=== PATIENT | female | born 1945 | race African-American/Black ===

== ENCOUNTER 2021-03-21 10:54 | Emergency (ER) | payer OTHER ==
[~2021-03-21] VITALS: Ht 160 cm; Wt 46.7 kg
[2021-03-21 11:40] LABS: URINE BILIRUBIN NEGATIVE (Negative); URINE BLOOD NEGATIVE (Negative); URINE CLARITY CLEAR; URINE COLOR YELLOW; URINE GLUCOSE-RANDOM* NEGATIVE (Negative); URINE KETONES NEGATIVE (Negative); URINE LEUKOCYTES-REFLEX NEGATIVE (Negative); URINE NITRITE-REFLEX NEGATIVE (Negative); URINE PROTEIN (DIPSTICK) NEGATIVE (Negative); URINE UROBILINOGEN 0.2 E.U./dl (0.2-1.0)
[2021-03-21 11:42] LABS: ABSOLUTE NEUTROPHILS 4.7 thou/uL (1.4-8.2); EOSINOPHILS 1.6 % (0.0-3.0); HEMATOCRIT 30.1 % (37.0-47.0); HEMOGLOBIN 9.6 gm/dL (12.0-15.0); LYMPHOCYTES 11.6 % (24.0-44.0); MCH 30.5 pg (26.0-34.0); MCHC 31.9 g/dL (28.0-37.0); MCV 95.6 fL (80.0-100.0); MONOCYTES 8.5 % (1.0-8.0); PLATELET COUNT 455 thou/uL (150-400); POLYS 77.3 % (36.0-66.0); RBC 3.15 mil/uL (4.20-5.00); RDW 15.5 % (10.5-14.5); WBC 6.1 thou/uL (4.0-11.0)
[2021-03-21 11:59] LABS: CALCIUM 8.9 mg/dL (8.5-10.1); CREATININE 0.9 mg/dL (0.6-1.0); POTASSIUM 4.1 mmol/L (3.5-5.1)
[2021-03-21 12:05] LABS: ALBUMIN 3.4 g/dL (3.4-5.0); TOTAL BILIRUBIN 0.3 mg/dL (0.2-1.0); TOTAL PROTEIN 7.4 g/dL (6.4-8.2)
[2021-03-21] MEDS ORDERED: TYLENOL325 MG PO (12:40)
[2021-03-21] MEDS ORDERED: NORVASC5 MG PO (12:41)
[2021-03-21] MEDS ORDERED: ATORVASTATIN CA10 MG PO (12:41)
[2021-03-21] MEDS ORDERED: CARBIDOPA-LEVO1 EAC9 PO (12:42)
[2021-03-21] MEDS ORDERED: LEXAPRO 10 MG T10 M2 PO (12:43)
[2021-03-21] MEDS ORDERED: VITAMIN D325 MC3 PO (12:43)
[2021-03-21] MEDS ORDERED: KEPPRA 500 MG500 M1 PO (12:45)
[2021-03-21] MEDS ORDERED: IRON325 PO (12:45)
[2021-03-21] MEDS ORDERED: LISINOPRIL20 MG PO (12:46)
[2021-03-21] MEDS ORDERED: IMODIUM A-D2 M1 PO (12:46)
[2021-03-21] MEDS ORDERED: SSD CREAM 1% 5050 GM TOP (12:47)
[2021-03-21] MEDS ORDERED: SEROQUEL 25 MG25 M1 PO (12:47)
[2021-03-21] MEDS ORDERED: PROTONIX 20 MG20 MG PO (12:47)
[2021-03-21 16:20] VITALS: BP 124/87
[2021-03-21] MEDS ORDERED: LIPITOR10 MG PO (18:39)
== END 2021-03-21 16:22 ==
LOC: ER 10:54
PROVIDERS: Physician Assistant
DX: F98.8 Other specified behavioral and emotional disorders with onset usually occurring in childhood and adolescence (principal); Z20.822 Contact with and (suspected) exposure to COVID-19; R45.6 Violent behavior; L89.152 Pressure ulcer of sacral region, stage 2; Z79.899 Other long term (current) drug therapy

== ENCOUNTER 2021-03-21 12:46 | Inpatient (IN) | payer OTHER ==
[~2021-03-21] VITALS: Ht 160 cm; Wt 47.7 kg
[~2021-03-21 12:46] MED LIST: ATORVASTATIN CA10 MG PO; CARBIDOPA-LEVO1 EAC9 PO; IMODIUM A-D2 M1 PO; IRON325 PO; KEPPRA 500 MG500 M1 PO; LEXAPRO 10 MG T10 M2 PO; LISINOPRIL20 MG PO; NORVASC5 MG PO; TYLENOL325 MG PO; VITAMIN D325 MC3 PO
[2021-03-21] MEDS ORDERED: PROTONIX 20 MG20 MG PO (12:47)
[2021-03-21] MEDS ORDERED: SEROQUEL 25 MG25 M1 PO (12:47)
[2021-03-21] MEDS ORDERED: SSD CREAM 1% 5050 GM TOP (12:47)
[2021-03-21 16:26] VITALS: BP 148/90
[2021-03-21] MEDS ORDERED: LIPITOR10 MG PO (18:39)
[2021-03-21 19:39] VITALS: BP 110/73
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
--- NOTE | 2021-03-22 02:07 | NUR ---
Assumed care from Day shift nurse at 1900, pt is Alert to self, pleasant, converses with nurse and DIRECTOR OF PUBLIC WORKS, Pt took her medications whole without difficulty, Lungs clear, HRR, Abd soft non tender BS+ x 4 Q, Pt had a BM this shift, Pt denies SI/HI, no symptoms of visual or auditory halluncinations. Dressing intact to coccyx area, Silvadene not available yet. Will continue to monitor this shift.
[2021-03-22 02:12] VITALS: BP 110/73
[2021-03-22 05:35] LABS: CHOLESTEROL 144 mg/dL (<200); HDL CHOLESTEROL 97 mg/dL (>40); LDL CHOLESTEROL 38 mg/dL (<100); SERUM ASSESSMENT Clear; TC:HDL 1.5 Ratio (Not establshd); TRIGLYCERIDE 46 mg/dL (<150); VLDL 9 mg/dL (<40)
[2021-03-22 07:28] VITALS: BP 142/85
--- NOTE | 2021-03-22 12:10 | NUR ---
ASSISTED TO DAYROOM WITH ASSIST OF ONE STAFF TO TRANSFER TO -COMPLIENT WITH ALLOWING CLOTHING CHANGE AND AM ADLS BUT OFFERS LITTLE ASSISTANCE. ONCE IN DAYROOM NOTED TO BE RESTLESS ATTEMPTING TO GET UP FROM CHAIR WITH BRAKES NOT LOCKED DESPITE NOT HAVING AMBULATED FOR SEVERAL YEARS PER HX-REFUSED AM MEDS TAKING CUP FROM NURSE AND POURING THEM ON FLOOR. REFUSES TO TALK WITH STAFF JUST LOOKS INTENTLY AT NURSE AND PICKS UP WATER CUP AND THREW IT TOWARD NURSE. REFUSES PHYSICL ASSESSMENT AND WOUND CARE-DOES APPEAR TO BE TALKING TO UNSEEN OTHERS IN DAYROOM
--- NOTE | 2021-03-22 18:04 | NUR ---
INCREASED RESTLESSNESS/IMPULSIVE BEHAVIOR THIS PM-STANDING UP AND ATTEMPTING TO WALK ON OWNEVERY FEW MINUTES REQUIRING STAFF TO SIT WITH HER CONTINOUSLY D/T AGITATION,REFUSAL TO FOLLOW VERBAL DIRECTION OF STAFF-RECENT FALL 02/16 WITH SUBSEQUENT SURGERY FOR BRAIN TRAUMA. ARGUMENTATIVE WITH STAFF WHENATTEMPTS MADE TO [id number]-BUR AMBULATE WITH USE OF ROLLER WALKER AND PT FOR SHORT DISTANCE-INCONTINENT OF BM-REQUIRES THREE STAFF TO COMPLETE INCONTINENT CARE AND WOUND CARE-DID LAY DOWN AFTER LUNCH WITH MUCH ENCOURAGEMENT-TO DECREASE PRESSURE ON COCYX BUT WAS ATTEMPTING TO CRAWL OUT OF BED OVER SIDERAILS WITHIN 10 MINUTES-CONTINUES TO REFUSE ALL PO MEDS.
[2021-03-22 19:54] VITALS: BP 96/63
[2021-03-23 00:43] VITALS: BP 96/63
--- NOTE | 2021-03-23 00:56 | NUR ---
03/22/21 Assumed care from day shift at 1900, pt sitting in wheelchair in day room at the table, Pt is alert to self, she converses with this nurse we discussed her taking her medication and she agrees. medication taken whole without difficulty she drank two eight oz bottles of water. Pt had a BM this shift and her dressing was changed at about 2200. She was cooperative with that and tolerated the procedure fine. Pt talks with this nurse about classical music. Pt denies SI/HI/AH/VH, will continue to monitor throughout shift.
[2021-03-23 07:07] LABS: GLYCOHEMOGLOBIN (HGB A1C) 4.6 % (4.8-5.6)
[2021-03-23 08:42] VITALS: BP 142/94
--- NOTE | 2021-03-23 11:23 | NUR ---
WAS COOPERATIVE WITH TAKING AM MEDICATIONS WITH PROMPTING-INITIALLY REFUSED STATING THAT SHE HAD ALREADY HAD THEM.DID TAKE RELUCTANTLY AFTER 30-40 MINUTES OF SUPPORT/EDUCATION BY RN. NO SEIZURE ACTIVITY NOTED OR REPORTED. DOES TRANSFER TO/FROM BED/TOILET WITH ASSIST 2 STAFF. ATTEMPTED TO AMBULATE FROM DOOR OF ROOM TO TOILET AND WAS RESISITVE/ANXIOUS STATING "I CAN'T WALK RIGHT NOW IM TOO WEAK" ORIENTED TO NAME ONLY-DID TELL MAIL CLERK SHE HEARD BARKING AND WAS WORRIED THAT A DOG WAS GOING TO GET INTO HER ROOM. ATE 100 PERCENT OF BREAKFAST-INITIALY THIS AM IN WC WITH CUSHION-TRANSITIONED TO GERICHAIR AT 1000 PER WOUND CARE TX PLAN TO DECREASE PRESSURE TO COCYX WOUND PT REFUSES TO LAY DOWN AND REQUIRES CONSTANT REDIRECT TO PREVENT ANOTHER FALL.
--- NOTE | 2021-03-23 13:45 | NUR ---
OBSERVED INCREASE IN RESTLESSNESS,AGITATION AFTER LUNCH-TOILETED AND ATTEMPTED TO LAY DOWN FOR AN HOUR TO RELIEVE PRESSURE TO COCYX WOUND PER TX PLAN HOWEVER REFUSES-INSISTING THAT SHE HAS NO PROBLEMS WALKING ON OWN AND DOES NOT HAVE A WOUND-ALSO INSITING SHE HAS NEVER FALLEN OR HAD SURGERY ON HEAD A RESULT OF THAT FALL. "YOU ARE AN IDIOT AND I AM GOING TO BRITNEY ALL OF YOU-YOU CAN'T TELL ME WHEN TO LIE DOWN AND WHEN TO WALK"ATE WELL AT BREAKFAST BUT APPROX 50 PERCENT AT LUNCH-MAJORITY OF MEAL WAS BENT OVER IN WC STATING SHE WAS TRYING TO GET THE BUGS OFF THE FLOOR" NO BUGS OBSERVED BY STAFF .
--- NOTE | 2021-03-23 15:07 | NUR ---
SW met with patient and Dr. Graff to complete assessment. SW team will remain available.
[2021-03-23 19:09] VITALS: BP 123/86
[2021-03-23 20:00] VITALS: BP 123/86
--- NOTE | 2021-03-24 04:20 | NUR ---
PATIENT RESTING IN BED. HAVE HAD HER UP TO [facility] 3 TIMES. SHE IS INCONTINENT IN BED ALSO. SHE HAS HAD 2 FORMED STOOLS. SHE HAS A DIME SIZE OPEN AREA AT COCCYX THAT HAS BEEN KEPT CLEAN BUT DRESSINGS NOT STAYING ON WELL D/T INCONTINENCE AND BMS. WOUND HAS BEEN CLEANED EACH INCONTINENT TIME WHEN DRESSING OFF WITH WOUND CLEANSER AND SILVADINE APPLIED AND XEROFORM AND COVERED WITH OPTIFORM DRESSING. PATIENT TURNED TO SIDE TO SIDE IN BED EVERY 2 HOURS UNLESS PATIENT HAS TURNED SELF. PATIENT IS HIGH FALL RISK. SHE HAS ALL 4 SIDERAILS UP D/T BEING ON SEIZURE MEDS. NO SEIZURES RECENTLY. PATIENT'S DENIES PAIN. NO SI/HI NOTED. SHE IS DELUSIONAL AND THINKS OF STAFF OTHER PEOPLE SHE KNOWS. SHE ALSO SEE'S A BLACK DOG THAT COMES TO VISIT IN THE HALLS AT TIMES. SHE HAS BEEN CALM AND COOPERATIVE. SHE TOOK HER HS MEDS WHOLE AND WITH WATER. ROUTINE ROUNDS TO ASSESS SAFETY AND STATUS OF PATIENT. CONTINUING TO MONITOR.
[2021-03-24 08:37] VITALS: BP 123/84
--- NOTE | 2021-03-24 18:00 | NUR ---
0700 ASSUMED CARE OF PATIENT. PATIENT SITTING IN GERICHAIR SLEEPING. PATIENT FEEDS SELF. MEDICATION TAKEN WHOLE WITH SOME ASSISTANCE. HANDS SHAKE, PATIENT HAS DIFFICULTY GETTING MEDICATION TO MOUTH. LS CLEAR, BS ACITVE, NO C/O PAIN. DENIES SI/HI. PATIENT TO ROOM, TRANSFERED DRESSING TO COCCYX CHANGED, CLEANSED WITH WOUND CARE CLEANSER, SILVEDENE APPLIED AND COVERED WITH XEROFORM & BOARDERED DRESSING. WOUND CARE IN TO SEE PATIENT AND OBSERVED WOUND. ALERT + ORIENTED X1. DENIES NEEDS AT THIS TIME
[2021-03-24 20:00] VITALS: BP 143/91
[2021-03-24 20:27] VITALS: BP 143/91
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
--- NOTE | 2021-03-25 03:45 | NUR ---
PATIENT SITTING UP IN RECLINER AT BEGINNING OF SHIFT. SHE DENIED PAIN AND STATES SHE HAD A GOOD DAY. SHE DID NOT APPEAR COMFORTABLE AND WHEN WENT TO REPOSITION SHE VOICED THAT SHE WAS FINE AND TO LEAVE HER. PATIENT'S PANTS WERE SOILED. PATIENT WAS ASSESSED AND MEDS GIVEN WHOLE WITH WATER. PATIENT TAKEN BACK TO ROOM RIGHT AFTER MEDS AND INCONTINENCE CARES DONE. WOUND AT COCCYX CLEANED WITH WOUND CLEANSER AND BARRIER CREAM APPLIED AND AREA LEFT OPEN TO AIR. PATIENT PLACED ON RIGHT SIDE. PATIENT HAS HAD 2 WATERY STOOLS THAT WERE BROWN/GREEN IN COLOR. SHE IS ON IRON. PATIENT HAS ROUTINE INCONTINENCE CARES AND TURNING PRN. SHE HAS BEEN RESTING WELL. SUTURES AREA LEFT SIDE OF HEAD WITHOUT SIGNS OF DRAINAGE OR INFECTION. PATIENT HAS BEEN A/0X1. DENIES SI/HI. NO HALLUCINATIONS THIS EVENING. BED IN LOW POSITION AND BED ALARM IS ON. ROUTINE ROUNDS TO ASSESS SAFETY AND STATUS OF PATIENT.
[2021-03-25 09:08] VITALS: BP 135/87
--- NOTE | 2021-03-25 16:53 | NUR ---
0700 ASSUMED CARE OF PATIENT, PATIENT IN BED AT THAT TIME. PATIENT IN GERICHAIR IN DAYROOM FOR BREAKFAST. REFUSES MEDICATION THIS AM WITH INCREASED AGITATION ATTEMPTING TO GIVE MEDS. PATIENT THEN CLOSES EYES AND DOES NOT TALK. PATIENT BACK TO BED, MOISTURE BARRIER APPLIED TO COCCYX WOUND AND LORIN. REPOSITIONED TO LEFT SIDE. PATIENT RESTING AT THAT TIME. PATIENT TO DAYROOM IN WITH WAFFLE CUSHION IN PLACE. LS CLEAR, BS ACTIVE ABD FLAT & SOFT. NO C/O PAIN. DENIES SI/HI.
[2021-03-25 19:30] VITALS: BP 101/67
--- NOTE | 2021-03-26 04:57 | NUR ---
03-25-21 CARE TRANSFERRED 1899. LATER PT PRESENTS DROWSY, BUT EASILY AWAKEN TO VOICE, PT AAOX1, VSS, RR EVEN AND NONLABORED ON RA. PT DENIES PAIN AND SI/HI. PT BEEN CALM AND COOPERATIVE THROUGHOUT NURSING ASSESSMENT. PT HAS BEEN REPOSITION Q2 AND LEFT OPEN TO AIR ON CLEAN CHUX. ZERO S/S OF ACUTE DISTRESS NOTED, PT WILL CONTINUE TO BE MONITOR PER [facility] PROTOCOL.
[2021-03-26 10:21] VITALS: BP 135/81
--- NOTE | 2021-03-26 18:54 | NUR ---
0700 ASSUMED CARE OF PATIENT, PATIENT IN BED AT THAT TIME. PATIENT IN WC FOR BREAKFAST AWAKE AND ALERT. ORIENTED TO SELF. MEDICATION TAKEN WHOLE WITHOUT DIFFICULTY, DENIES PAIN, LS CLEAR, BS ACTIVE, VS STABLE. SHARATH CARE COMPLETE, PATIENT HAD A MOD LOOSE STOOL. PATIENT REPOSITIONED TO LEFT SIDE. PICTURE OBTAINED OF WOUND TO COCCYX. MOISTURE BARRIER APPLIED AND LEFT CLAMPER. PATIENT DENIES SI/HI. PATIENT OUT TO DAYROOM FOR EVERYMEAL WITH CUSHION IN WC THEN BACK TO BED AFTER EACH MEAL. CALM AND COOPERATIVE. DELUSIONS NOTED PATIENT TALKS ABOUT TAKING THE CAT OUT AND HOW WE SHOULD BE CAREFUL WITH THE CAT. SOFT STOOL X3 TODAY.
[2021-03-26 19:57] VITALS: BP 88/56
[2021-03-26 20:00] VITALS: BP 113/66
--- NOTE | 2021-03-27 01:51 | NUR ---
PT CARE WAS RESUMED AT 1900. PT WAS IN BED. SHE DENIED ANY PAINS AND DISCOMFORT. SHE IS ABLE TO VERBALIZE HER NEEDS. BP WAS LOW NURSE OFFERED FLUIDS AND SHE DRANK VERY GOOD. SHE IS EDUCATED ON THE IMPORANCE OF FLUID AND SHE STATES A GGOD UNDERSTANDING. BED IS LOW,LOCKED AND ALRM ON. SHE DENIES SI/AVH/HI. Q2 HOURLY REPOSITION. PERICARE IS PROVIDED. NON SKID SOCK IS ON. CONT CARE AND MONITOR.SHE TOOK HER MEDS WHOLE WITHOUT ANY ISSUE. BS ACTIVE X 4 QUAD. CONTINUE CARE
[2021-03-27 08:35] VITALS: BP 113/78
--- NOTE | 2021-03-27 12:19 | NUR ---
RT Progress Note- Margarita's presence in the milieu and recreation therapy groups has been limited d/t a wound and her lying in bed to offload pressure. She has however been in attendance to most morning groups. Margarita is willing to participate in groups and has a positive attitude. It is noted that she can be slow to time and requires patience to participate in discussion. Margarita particularly has expressed that she enjoys music. SHOP MECHANIC will continue to encourage progress and participation as available.
--- NOTE | 2021-03-27 13:22 | NUR ---
Assumed pt care at 0700. pt was in room resting. pt was oriented to self. Assessments completed VSS. Pt took meds whole, no difficulty noted. ACTIVE BOWEL SOUND. pt AMBULATES WITH A W/C. Pt took a shower this shift. ZYguard applied to pt coccyx wound. Denies si/hi and denies pain at this time. pt is calm and co-operative with care. Pt family visited. will continue to monitor pt.
--- NOTE | 2021-03-27 17:48 | NUR ---
@10 am Manolo contacted [facility] and spoke with RODNEY. RODNEY informed they sent the referral to [facility] and was awaiting and answer from them. RODNEY assured SW would recieve a call this afternoon concernint he matter. @1545 MANOLO again call Mely and spoke with RODNEY concerning discharge. RODNEY stated that [facility] had not gotten back with them. However [facility] has submitted authorization for rehab to Pt's insurance and is waiting for approval. @1650 MANOLO contacted Pt's , Matt, concerning move to [facility]. Matt stated he was unaware that [facility] had sent a referral to [facility]. Matt stated he wanted the Pt to return to [facility] if possible. @1656 MANOLO spoke with Marisela at [facility]. Marisela stated she did not recieved a referral from [facility]. However she dis speak with Sarita last week and informed they would not be able to accept the Pt due to behaviors. Nile stated that [facility]ita troncoso called her this morning concerning the Pt however she never recieved a referral. MANOLO will follow up with [facility] on the authorization and discharge.
[2021-03-27 19:43] VITALS: BP 129/81
[2021-03-27 20:00] VITALS: BP 129/81
--- NOTE | 2021-03-28 03:42 | NUR ---
PT CARE WAS RESUMED AT 1900. SHE IS ALERT AND ORIENTED WITH CONFUSSIION AND FORGETFULNESS. ABLE TO VERABALISE SOME NEEDS. SHE DENIES ANY DISCOMFORT, SI/ AVH/ HI. SHE IS REPOSITIONED TO HER SIDES Q 2 HOURS . SHE TOOK HER MEDS WHOLE AND THIS NURSE OFFERED FLUIDS WITH GOOD COMPLAINT AND SHE DRANK ALL FLUIF. BS ACTIVE X 4 QUAD. WOUND AREA AT HER COCCYX IS CLEANED AND CREAME IS APPLED PER ORDER. BED IS LOW , LOCK, ALARMED, AND SHE HAS A NON SKID SOCKS ON. CONTINUE WITH Q 12MINS CHECKS.
[2021-03-28 04:58] LABS: HEMATOCRIT 29.4 % (37.0-47.0); HEMOGLOBIN 9.5 gm/dL (12.0-15.0); MCH 30.7 pg (26.0-34.0); MCHC 32.3 g/dL (28.0-37.0); RBC 3.09 mil/uL (4.20-5.00); RDW 14.6 % (10.5-14.5); WBC 4.6 thou/uL (4.0-11.0)
[2021-03-28 05:22] LABS: CALCIUM 9.2 mg/dL (8.5-10.1); MAGNESIUM 1.8 mg/dL (1.8-2.4); POTASSIUM 4.4 mmol/L (3.5-5.1)
[2021-03-28 06:03] LABS: FOLIC ACID 9.5 ng/mL (8.6-58.9)
--- NOTE | 2021-03-28 08:12 | HC ---
[facility] [place] [address] CONSULTATION Name: CHAR GONZALEZ Ana Room #: 517-A [facility] IN ..#: [id number] Admission: 03/21/21 Attend Phys: Chris Graff DO Discharge: Date of : 41 Report #: [id number] THIS REPORT FOR: cc: Kaylah Leon MD, Elizabeth A. MD Althoff, Jeffrey R. MD ~ DOC #: [id number] Jermaine Connelly MD DATE OF SERVICE: 03/24/2021 DATE OF EVALUATION: 03/24/2021. CHIEF COMPLAINT: Coccygeal pressure ulceration. HISTORY OF PRESENT ILLNESS: This is a 76-year-old female patient admitted to the Geriatric Psych Unit with depression, anxiety and combative, aggressive behavior. She has history of dementia, was noted to have a coccygeal pressure ulceration, for which I have been asked to see her. She is not able to provide any information about herself currently. PAST MEDICAL HISTORY: Positive for history of hypothyroidism, asthma, vitamin D deficiency, major depression, seizures, Parkinson's, gastroesophageal reflux disease, spinal stenosis, TIA, pneumonia, hypertension, hyperlipidemia, irritable bowel syndrome, coronary artery disease, hemorrhagic cerebrovascular accident with right hemiparesis, sacrococcygeal pressure ulceration. MEDICATIONS: Amlodipine, atorvastatin, cholecalciferol, escitalopram, lisinopril, pantoprazole, ferrous sulfate, levetiracetam, quetiapine, zinc oxide, ondansetron. ALLERGIES: No known drug allergies. FAMILY HISTORY: Unknown. REVIEW OF SYSTEMS: Unobtainable due to the patient's inability or unwillingness to communicate. PHYSICAL EXAMINATION: VITAL SIGNS: At this time include: Temperature 36.0, pulse 81, respiration 17, blood pressure 123/84. GENERAL: This is a chronically ill-appearing female patient who appears to be in minimal distress. HEENT: Head: Normocephalic. Nose and throat are clear. NECK: Supple. LUNGS: Clear. ABDOMEN: Soft. [facility] [address] [place] [address] CONSULTATION Name: CHAR GONZALEZ Room #: 517-A [facility] IN ..#: [id number] Admission: 03/21/21 Attend Phys: Chris Graff DO Discharge: Date of : 41 Report #: [id number] MUSCULOSKELETAL: Sacral region demonstrates a stage III pressure ulceration to the coccygeal region. It is relatively clean with granulation tissue. It is not overtly infected. No exposure of deep structures. NEUROLOGIC: The patient has right-sided weakness, is noncommunicative. CLINICAL IMPRESSION: 1. Stage III coccygeal pressure ulceration. 2. Depression and anxiety with combative and aggressive behavior. 3. Hypertension. 4. Hyperlipidemia. 5. History of Parkinson's disease. 6. History of cerebrovascular accident. RECOMMENDATIONS: At this point in time, we will recommend moisture barrier cream and otherwise the area should be left open to air. To be applied b.i.d. and p.r.n. She will need q. 2 hour, turning and positioning and will utilize a waffle cushion if she is up in the chair. Continue with aggressive nutritional support as much as possible. I appreciate being asked to see her in consultation. MD COLBY Mixon/CHASE <ELECTRONICALLY SIGNED> By: Jermaine Connelly MD 03/28/21 0812 [id number] Jermaine Connelly MD /nt
[2021-03-28 09:38] VITALS: BP 125/76
[2021-03-28 10:37] VITALS: BP 125/76
--- NOTE | 2021-03-28 11:20 | NUR ---
Assumed pt care 0700. pt was sitting on the Nisreen chair in the day room. Pt was alert and oriented to self. Pt took meds whole, no difficulty noted. pt talks and respond to an unseen person. pt ambulates with a NISREEN CHAIR. pt is confused, no sign of acute distress noted upon assessments. No sign of si/hi noted. c/o pain. tylenol administered. zyguard applied to pt coccyx wound. pt was incontinent x1. At this time pt is in the day room resting. will continue to monitor.
--- NOTE | 2021-03-28 17:23 | NUR ---
MANOLO contacted Patrick at [facility] concerning the insurance authorization for skilled rehab for the Pt. Patrick stated they had not recieved approval and would contact MANOLO once recieved. MANOLO will continue to follow.
[2021-03-28 19:23] VITALS: BP 102/65
[2021-03-28 21:34] VITALS: BP 102/65
--- NOTE | 2021-03-28 21:52 | NUR ---
Assume care from day shift 1899, pt is alert to self, Pt was wanting to order a double cheeseburger with onion rings, discuss that dinner was over but it is almost time for a snack would you like a snack and pt verbalized she would. she had vanilla ice cream. Pt remains impulsive but is easily redirected. Lungs clear, abd soft non tender, LBM 03/28/21. Denies SI/HI, VH/AH, does talk to herself but not to anyone in particular. Disposition is pleasant, will continue to monitor throughout shift.
[2021-03-29 09:11] VITALS: BP 131/79
[2021-03-29 11:26] VITALS: BP 131/79
--- NOTE | 2021-03-29 14:13 | NUR ---
Assumed pt care at 0700. pt was in the day room resting. Alert and oriented to person. Assessments completed, vss. active bowel sound. incontinent of bowel x2, incontinent of bladder x3 This shift. Took meds whole, No difficulty noted. Ambulates with a Gerichair. pt was confused upon assesments. No sign of acute distress noted. No sign or c/o pain. ZYGUARD APPLIED to pt bottom after perineal care. Pt family visisted. AT this time pt is in the room day room relaxing. will continue to monitor pt.
[2021-03-29 19:26] VITALS: BP 106/70
[2021-03-29 22:01] VITALS: BP 106/70
--- NOTE | 2021-03-29 22:07 | NUR ---
Assumed care from day shift nurse @ 1900, Pt sitting day room at the table, Pt is alert and oriented to person, Pt is batting out at the air but will converse with the nurse. Pt took her medication whole with direction, ate her bedside snack and drank her water. Pt tends to talk about the piano and other random things. Pt was assisted to bed by staff. Pt disposition is pleasant. Lungs clear to auscultation bilat, HRR, Active BS x 4 Q, BM day shift. Sacral wound open to air. Will continue to monitor throughout shift.
[2021-03-30 07:40] VITALS: BP 128/81
--- NOTE | 2021-03-30 15:35 | NUR ---
0700 ASSUMED CARE OF PATIENT. PATIENT SITTING UP IN NISREEN CHAIR FOR BREAKFAST. FEEDING SELF WITH MIN ASSISTANCE. MEDICATION GIVEN WHOLE WITH PUDDING, TAKEN WITHOUT DIFFICULTY. REPOSITIONED IN CHAIR TO LEFT SIDE. AFTER LUNCH PATIENT TAKEN TO BED AND POSITIONED TO RIGHT RIDE. 1530 CHELY CARE GIVEN, COCCYX WOUND CLEANSED WITH NS SILVEDENE APPLIED THEN XEROFORM APPLIED. 3X3 BOARDERED DRESSING APPLIED. PATIENT REPOSITIONED TO LEFT SIDE. PATIENT AWAKE AND ALERT WITH DELLUSIONS OF NEEDING TO WATER YARD AND PLANTS. MEDICATION GIVEN WITH PUDDING WITHOUT DIFFICULTY. BED ALARM ON AT THAT TIME.
[2021-03-30 19:12] VITALS: BP 87/53
[2021-03-30 19:30] VITALS: BP 87/53
--- NOTE | 2021-03-31 06:09 | NUR ---
03/30/21 19:15 Assumed care from day shift, seated in the day room in a sergei chair. Seated on waffle cusion while in sergei chair. Relaxed, awake and oriented x1-2. Cooperative with assessment and compliant with medication, taking meds whole in applesauce. Incontinent and wet brief noted. Transferred to bed and bed in low position, bed alarm set, will continue to monitor q 12 minutes for SBH protocol.
[2021-03-31 09:11] VITALS: BP 138/87
--- NOTE | 2021-03-31 17:27 | NUR ---
MANOLO recieved a call from Patrick at [facility]. Patrick requested updated PT/OT notes. MANOLO faxed updates. Still waiting for insurance approval
[2021-03-31 19:38] VITALS: BP 113/65
--- NOTE | 2021-03-31 19:47 | NUR ---
0700 ASSUMED CARE OF PATIENT, PATIENT IN BED AT THAT TIME. PATIENT UP TO NISREEN CHAIR WITH WAFFLE CUSHION IN PLACE. PATIENT FEEDS SELF WITHOUT DIFFICULTIES. ALERT AND ORIENTED X1 SELF. BS ACTIVE, LS CLEAR. MEDICATIONS TAKEN WHOLE IN APPLE SAUCE. PATIENT TO BED AFTER MEALS WITH WOUND OPEN TO AIR AND POSITIONED ON SIDE. MOISTURE BARRIER APPLIED TO WOUND X3 TODAY. PATIENT RECIEVED VISITORS TODAY. PATIENT IN BED RESTING WITH EYES CLOSED.
--- NOTE | 2021-04-01 04:23 | NUR ---
ASSESSMENT COMPLETED.PT IS ALERT TO SELF, CONFUSED. TOOK HS MEDS WITH NO DIFFICULTIES. PT IS INCONTINENT. PERICARE PROVIDED, BARRIER CREAM APPLIED TO COCCYX AREA AND Q2HR TURN PROVIDED..VSS. AFEBRILE.NO S/SX OF DISTRESS OR DISCOMFORT. FALL PREC IN PLACE.
[2021-04-01 05:35] LABS: HEMATOCRIT 29.5 % (37.0-47.0); HEMOGLOBIN 9.5 gm/dL (12.0-15.0); MCH 30.3 pg (26.0-34.0); MCHC 32.4 g/dL (28.0-37.0); MCV 93.6 fL (80.0-100.0); RBC 3.15 mil/uL (4.20-5.00); RDW 14.5 % (10.5-14.5); WBC 5.6 thou/uL (4.0-11.0)
[2021-04-01 06:04] LABS: CALCIUM 9.1 mg/dL (8.5-10.1); CREATININE 0.8 mg/dL (0.6-1.0); MAGNESIUM 1.8 mg/dL (1.8-2.4); POTASSIUM 4.4 mmol/L (3.5-5.1)
[2021-04-01 10:08] VITALS: BP 122/84
--- NOTE | 2021-04-01 12:25 | NUR ---
MELISSA RECEIVED A VM SENT BY MANOLO AND NET DEVELOPER FROM ADRIEN Oneill AT [facility] STATING THEIR PHYSICIAN IS REQUESTING A PEER TO PEER FOR SNF PRIOR TO DETERMINATION AND HAS TO BE COMPLETED BY 2PM. MELISSA REACHED OUT TO PEER TO PEER LINE [phone] OPT 5 AND SPOKE WITH ADRIEN AND GOT THE TIME EXTENDED UNTIL 1530 DR. ORANTES STATING HE IS UNAVAILABLE UNTIL 1500. MELISSA NOTIFIED DR. HALL HE HAs to call the peer to peer line above by 1530 OR THEY WILL AUTOMATICALLY DENY SNF. MELISSA HALL STATING HE WILL COMPLETE PEER TO PEER. AWAITING DETERMINATION AT THIS TIME. NET DEVELOPER AWARE.
--- NOTE | 2021-04-01 13:42 | NUR ---
ASSUMED PT CARE THIS AM. PT A&OX1. PATIENT TOLERATING MEDICAITONS AND MEALS WELL. PATIENT UP IN NISREEN CHAIR ON CUSHION AND BEING REPOSITIONED IN BED TO LAY ON HER SIDE WELL. PATIENT COMPLAINED OF PAIN THIS AM, RESPONDED WELL TO TYLENOL GIVEN. PATIENT HAD A BOWEL MOVEMENT TODAY. PATIENT HAS REMAINED INCONTINENT. FAMILY HERE TO VISIT PATIENT TODAY.
--- NOTE | 2021-04-01 16:52 | NUR ---
Alert and orientated to name only. Denies SI/HI. Breath sounds clear. Reg HR auscultated. Color pale pink with brisk capillary refill and palpable peripheral pulses. No edema noted. Brief dry of urine. Active bowel sounds over soft, flat abdomen. Medium dark green formed stool. 1.5 cm circular wound to coccyx cleaned with NS and Z guard applied. Able to stand with assistance but is unable to walk. Impulsive at times trying to stand on her own. Currently in day room with peers sitting quietly.
[2021-04-01 19:13] VITALS: BP 86/59
--- NOTE | 2021-04-02 06:00 | NUR ---
RESTED WELL THROUHGOUT HOULRY ROUNDS, PT QUIET AND COOPERATIVE ,PT ABLE SWALLOW MEDICATION WITH APPLESAUCE. NO CHANGES IN PT ASSESSMENT.
[2021-04-02 10:11] VITALS: BP 153/98
[2021-04-02] MEDS ORDERED: KEPPRA 500 MG500 M1 PO (12:12)
[2021-04-02] MEDS ORDERED: SEROQUEL 50 MG50 MG PO (12:12)
[2021-04-02] MEDS ORDERED: PROTONIX 20 MG20 M1 PO (12:13)
--- NOTE | 2021-04-02 12:20 | NUR ---
PATIENT HAS BEEN UP, AND OUT IN DAYROOM SITITNG IN [facility], WAFFLE CUSHION IN PLACE. PATIENT TOOK MORNING MEDICATION WHOLE WITHOUT DIFFICULTY, SHE IS EATING MEALS, AND DRINKING FLUID WELL, ABLE TO FEED SELF. PATIENT DENIES SUICIDAL IDEATION, NOT ABLE TO APPROPRIATELY RESPOND TO FURTHER ASSESSMENT QUESTIONS DUE TO COGNITIVE IMPAIRMENT. PATIENT HAD LARGE SOFT BOWEL MOVEMENT THIS MORNING PER OT REPORT, GOOD PERICARE PROVIDED. WOUND TO SACRAL AREA HEALING WELL, LEFT OPEN TO AIR, BARRIER CREAM APPLED. PATIENT DENIES HAVING PHYSICAL PAIN, NO SIGN OF ACUTE DISTRESS NOTED AT THIS TIME, WILL MONITOR FOR SAFETY.
--- NOTE | 2021-04-02 12:23 | NUR ---
MANOLO recieved a call from Patrick at [facility]. Patrick confirmed he recieved the approval for SNF from the Pt's insurance. Patrick was willing to accept the Pt today. Patrick requested DA- 124C, COVID results, and orders prior to setting up transportation. MANOLO will fax all requested documents. D/C set for 04/02/2021 @ [facility]. [facility] will provide transportation.
--- NOTE | 2021-04-03 07:15 | D ---
[facility] [place] [address] DISCHARGE SUMMARY Name: CHAR GONZALEZ Room #: 517-A [facility] IN M.R.#: [id number] Admission: 03/21/21 Attend Phys: Mis Graff DO Discharge: 04/02/21 Date of : 41 Report #: [id number] THIS REPORT FOR: cc: Kaylah Leon MD, Elizabeth A. MD Kerstein, Andrew H. 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 Medical comorbidities include stage III coccygeal pressure ulcer, healing nicely; hypertension; hyperlipidemia; anemia; history of seizure disorder; gastroesophageal reflux disease; history of Parkinson's disease, though at this point deferring treatment due to minimal symptoms and pronounced delusions and psychosis initially; history of major depressive disorder; psychosis. Patient is being discharged to halfway at [facility]. Psychiatric and general medical care to be provided by receiving facility. The patient's diet at time of discharge is regular with Ensure Enlive at lunch, and Ensure pudding chocolate all meals and as needed in between meals. The patient is a moderate assist with ambulation and transfers. DISCHARGE MEDICATIONS: As follows: Amlodipine 5 mg oral daily for hypertension, atorvastatin 20 mg oral daily for hyperlipidemia, vitamin D3 50 mg oral daily, Lexapro 20 mg oral daily for depression, ferrous sulfate 325 mg oral at bedtime, lisinopril 10 mg oral daily for hypertension and renal protection, Keppra 500 mg oral daily for history of seizure disorder and history of hemorrhagic stroke in February, Seroquel 50 mg oral daily at 0900, 1500 and 2100 for psychosis; pantoprazole 20 mg oral daily for GI protection. LABORATORY DATA: The patient's significant laboratories this admission, H and H 9.5 and 29.5 on 04/02/2021, white count 5.6, platelet count 407. Chemistry: Sodium 140, potassium 4.4, chloride 105, bicarbonate 30, anion gap 7, BUN 26, creatinine 0.8, estimated GFR 84, glucose 89, calcium 9.1, magnesium 1.8. Vitamin B12 level 449. I elected not to replace vitamin D at 66.4. Folate 9.5. TSH 0.394. [address] [address] DISCHARGE SUMMARY Name: GONZALEZCHAR Room #: 517-A [facility] IN ..#: [id number] Admission: 03/21/21 Attend Phys: Mis Graff, Discharge: 04/02/21 Date of : 43 Report #: [id number] REASON FOR PSYCHIATRIC ADMISSION: Back around 03/21/2021, this 76-year-old black female sent out from [facility] for suicidal behaviors and agitation. The patient initially had an ischemic stroke, seen at [facility] and then [facility] where she reportedly had a hemorrhagic stroke, taken to [facility], had a craniotomy and evacuation by Dr. Burleson. Following that, she was sent to the [facility]. It is unclear exactly how many days she had been at the SNF, but behaviors became a problem. Interestingly, patient has a master's degree in counseling and is an accomplished doty-musician. HOSPITAL COURSE: The patient was admitted to Geriatric Psychiatry Unit. She was appearing quite impaired, confused, and poorly oriented. We got some emotional regulation and impulse control. She continued to be severely cognitively impaired. She was only able to get through about half the [facility] Mental status examination with me and had gross deficits. I think it is worth giving another 1-2 weeks of halfway time, but she is probably going to need long-term care. I did the best I could to get her , Matt to understand this. One of visits, Matt had his son with him, spoke with him about the situation. Unfortunately, the two strokes have led to significant cognitive impairment. The patient is not suicidal or homicidal. On day of discharge, she interpreted me saying that Yoan is actually a person's name and she needed to call him instead of the nursing facility she was going to. PHYSICAL EXAMINATION: VITAL SIGNS: Temperature is 36.1, pulse 88, respirations 18, BP 153/98, sat 98%. MUSCULOSKELETAL EXAM: Seated in a Gloria chair. Unkempt appearance. MENTAL STATUS EXAMINATION: This is a well-developed, ill-appearing black female apparently stated age. Attention, concentration limited. Speech normal rate, rhythm and tone. Thought process linear, limited. Thought content: Focused on the present. Oriented to self, not completely to time or situation. Denies suicidal or homicidal ideation. Denied auditory, visual, or tactile hallucinations. Mood and affect was constricted and congruent. Insight and judgment impaired. Fund of knowledge well below her baseline. Prognosis for this patient is quite guarded due to the two recent strokes and her neurocognitive disorder. MIS Graff, DO AHK/EKT/ANI [facility] [address] [facility] [place] [address] DISCHARGE SUMMARY Name: CHAR GONZALEZ Room #: 517-A [facility] [place] M.R.#: [id number] Admission: 03/21/21 Attend Phys: Mis Graff DO Discharge: 04/02/21 Date of : 41 Report #: [id number] <ELECTRONICALLY SIGNED> By: Mis Graff DO 04/03/21 0715 [id number] 0020 Mis Graff DO /nt
== END 2021-04-02 14:00 | DRG 56 ==
LOC: SBH 12:46
PROVIDERS: Internal Medicine; ADMIT Psychiatry & Neurology Psychiatry; ATTEND Psychiatry & Neurology Psychiatry
DX: G20 Parkinson's disease (principal); F01.51 Vascular dementia, unspecified severity, with behavioral disturbance; L89.153 Pressure ulcer of sacral region, stage 3; F02.81 Dementia in other diseases classified elsewhere, unspecified severity, with behavioral disturbance; I10 Essential (primary) hypertension; E78.5 Hyperlipidemia, unspecified; G40.909 Epilepsy, unspecified, not intractable, without status epilepticus; K21.9 Gastro-esophageal reflux disease without esophagitis; I25.10 Atherosclerotic heart disease of native coronary artery without angina pectoris; F41.9 Anxiety disorder, unspecified; D64.9 Anemia, unspecified; R26.9 Unspecified abnormalities of gait and mobility; F29 Unspecified psychosis not due to a substance or known physiological condition; F32.9 Major depressive disorder, single episode, unspecified; Z20.822 Contact with and (suspected) exposure to COVID-19; Z79.899 Other long term (current) drug therapy; Z98.42 Cataract extraction status, left eye; Z98.41 Cataract extraction status, right eye; Z90.710 Acquired absence of both cervix and uterus; Z95.5 Presence of coronary angioplasty implant and graft; Z85.43 Personal history of malignant neoplasm of ovary; Z86.73 Personal history of transient ischemic attack (TIA), and cerebral infarction without residual deficits
CPT/HCPCS: 10880